=== PATIENT | male | born 1960 | race African-American/Black ===

== ENCOUNTER 2019-03-01 12:22 | Emergency (ER) | payer MEDICAID ==
[~2019-03-01] VITALS: Ht 180.3 cm; Wt 91.0 kg
[2019-03-01] MEDS ORDERED: MORPHINE SULFATE 4 MG/ML CPJ (NOT FOR IM USE) IV STA (12:42)
[2019-03-01] MEDS ORDERED: SODIUM CHLORIDE 0.9% 1,000 ML IV ONE (12:42)
[2019-03-01] MEDS ORDERED: ONDANSETRON HCL 4MG/2ML INJ IV STA (12:42)
[2019-03-01] MEDS ORDERED: TETANUS, DIPHTHERIA, PERTUSSIS VAC/PF 0.5ML (>7YR OLD) IM ONE (12:45)
[2019-03-01] MEDS ORDERED: CLINDAMYCIN 600 MG in DEXTROSE 5% WATER 50 ML IV ONE (12:45)
[2019-03-01 13:34] LABS: BASOPHILS % 0.7 % (0.0-2.0); EOSINOPHILS % 2.7 % (0.0-5.0); HEMATOCRIT. 40.9 % (42.0-52.0); HEMOGLOBIN. 13.8 g/dL (14.0-18.0); LYMPHOCYTES % 15.7 % (20.0-50.0); MEAN CORPUSCULAR VOLUME 97.6 fL (80.0-94.0); MEAN PLATELET VOLUME 8.3 fl (7.4-10.4); MONOCYTES % 6.8 % (2.0-8.0); NEUTROPHILS % 74.1 % (40.0-76.0); PLATELET 290 x1000/uL (130-400); RED BLOOD CELL COUNT 4.19 mill/uL (4.7-6.1); RED CELL DISTRIBUTION WIDTH 13.1 % (11.6-14.6)
[2019-03-01 13:36] LABS: CHLORIDE 104 mEq/L (98-107)
[2019-03-01] MEDS ORDERED: CLINDAMYCIN 600MG PREMIX 50 ML IV ONE (13:45)
[2019-03-01 14:45] VITALS: BP 167/88
== END 2019-03-01 14:10 | disposition short-term general hospital (02) ==
LOC: ER 12:22
DX: T25.222A Burn of second degree of left foot, initial encounter (principal); L03.116 Cellulitis of left lower limb; X12.XXXA Contact with other hot fluids, initial encounter; Y93.89 Activity, other specified; Y92.89 Other specified places as the place of occurrence of the external cause; Z23 Encounter for immunization
CPT/HCPCS: 36415; 80053; 83605; 85025; 87040; 90471; 90715; 96374; 96375; 99285; A4217; J2270; J2405; J3490; J7030; Z7610; J7060